=== PATIENT | female | born 2000 | race Caucasian/White ===

== ENCOUNTER 2021-10-01 10:04 | Outpatient (CLI) | payer BC, OTHER ==
[2021-10-02 10:48] LABS: SARS-CoV-2 PCR by NAA Not Detected (NotDetected)
== END 2021-10-01 10:05 | disposition home or self-care (01) ==
LOC: CSHLAB 10:04
PROVIDERS: ATTEND Obstetrics & Gynecology
DX: Z20.822 Contact with and (suspected) exposure to COVID-19 (principal)
CPT/HCPCS: U0003; U0005

== ENCOUNTER 2021-10-04 06:13 | Inpatient (IN) | payer BC, OTHER ==
[2021-10-04] MEDS ORDERED: hydrALAZINE 20 MG/ML VIAL SLOW IVP PRN (06:54)
[2021-10-04] MEDS ORDERED: Promethazine HCl 25 MG/ML VIAL IM PRN ×2 (06:54→08:48)
[2021-10-04] MEDS ORDERED: Ondansetron PF 4 MG/2 ML Vial IVP PRN ×2 (06:54→08:48)
[2021-10-04] MEDS ORDERED: Ibuprofen 800 MG TAB PO PRN (06:54)
[2021-10-04] MEDS ORDERED: HYDROcodone/Acetaminophen 5/325 mg Tablet PO PRN (06:54)
[2021-10-04] MEDS ORDERED: Misoprostol 200 MCG TAB PR PRN (06:54)
[2021-10-04] MEDS ORDERED: Lidocaine 1% (PF) 30 ML VIAL SC PRN (06:54)
[2021-10-04] MEDS ORDERED: NS w/ Oxytocin 30 units 500 ML IVPB SCH (07:00)
[2021-10-04] MEDS ORDERED: Dextrose 5%-Lactated Ringers 1,000 ML IV SCH (07:00)
[2021-10-04] MEDS ORDERED: Fentanyl 2 mcg/Bup 0.1% Cadd 100 ML ONE (08:01)
[2021-10-04 08:13] LABS: Hemoglobin 9.8 g/dL (12.0-15.5); Mean Corpuscular HGB CONC 29.8 g/dL (32.0-36.0); Mean Corpuscular Hemoglobin 22.7 pg (27.0-33.0); Mean Corpuscular Volume 76.3 fl (81.6-98.3); Mean Platelet Volume 11.5 fl (7.4-10.4); Red Blood Cell (RBC) Count 4.31 10x6/uL (3.90-5.03); White Blood Cell (WBC) Count 9.6 10x3/uL (3.5-10.5)
[2021-10-04 08:14] LABS: Platelet Count 207 10x3/uL (150-450)
[2021-10-04 08:19] LABS: Hep B Surf Ag Non-Reactive S/CO (NonReactive); Syphilis Antibody Nonreactive (Nonreactive); Syphilis Antibody Index 0.05 S/CO (<1.00 Non-Reactive)
[2021-10-04] MEDS ORDERED: Lactated Ringer's 500 ML IV PRN (08:48)
[2021-10-04] MEDS ORDERED: ePHEDrine Sulfate 50 MG/10 ML VIAL SLOW IVP PRN (08:48)
[2021-10-04] MEDS ORDERED: Naloxone HCl 0.4 mg/ml Vial IVP PRN ×2 (08:48)
[2021-10-04] MEDS ORDERED: Hydrocerin (Eucerin) Cream 120 gm Jar TOP PRN (08:48)
[2021-10-04] MEDS ORDERED: Acetaminophen 325 MG TAB PO PRN (08:48)
[2021-10-04] MEDS ORDERED: diphenhydrAMINE 50 MG/ML VIAL IVP PRN (08:48)
[2021-10-04 08:49] LABS: HBSAg Index 0.21 S/CO (0-0.99)
[2021-10-04] MEDS ORDERED: Fentanyl 2 mcg/Bupivacaine 0.1% Cassette 100 ML EPIDURAL SCH (09:00)
[2021-10-04] MEDS ORDERED: Communication Order-Pharmacy FS PRN (09:00)
[2021-10-04 10:35] VITALS: BMI 24.3
[2021-10-04] MEDS: NS w/ Oxytocin 30 units 500 ML IV SCH ×2 (11:40→12:30)
[2021-10-04 14:18] LABS: HIV (1/2) Antibody/Antigen Non-Reactive (NonReactive); HIV 1/2 INDEX 0.11 S/CO (<1.00)
[2021-10-04] MEDS ORDERED: Bupivacaine 0.25% HCL 30 ML VIAL ONE (14:20)
[2021-10-04] MEDS ORDERED: ePHEDrine Sulfate 50 MG/10 ML VIAL ONE (14:20)
[2021-10-05] MEDS ORDERED: Ibuprofen 800 MG TAB PO PRN (07:01)
[2021-10-05] MEDS: HYDROcodone/Acetaminophen 5/325 mg Tablet PO PRN ×2 (07:58→11:42)
[2021-10-05 09:18] VITALS: TEMP 98.2
[2021-10-05 11:46] VITALS: BP 113/54
== END 2021-10-05 13:10 | disposition home or self-care (01) | DRG 807 ==
LOC: CSHLD 06:13 → CSHPP 15:41
PROVIDERS: ADMIT Obstetrics & Gynecology; ATTEND Obstetrics & Gynecology
PROC: 10E0XZZ Delivery of Products of Conception, External Approach (ICD-10-PCS; principal; 2021-10-04)
PROC: 0KQM0ZZ Repair Perineum Muscle, Open Approach (ICD-10-PCS; 2021-10-04)
DX: O70.1 Second degree perineal laceration during delivery (principal); Z37.0 Single live birth; Z3A.39 39 weeks gestation of pregnancy
CPT/HCPCS: 36415; 85027; 86780; 86850; 86900; 86901; 87340; 87389; J2590; S0020; U0003; U0005